=== PATIENT | female | born 1975 | race Hispanic/Latino ===

== ENCOUNTER 2016-05-02 11:32 | Emergency (ER) | payer OTHER ==
[~2016-05-02] VITALS: Ht 160 cm; Wt 98.0 kg
[~2016-05-02 11:32] MED LIST: ASPI-628 PO; GLIP5TAB21 PO; INSLIS SUBQ; INSU100V7 SUBQ; KETO30CA8 IJ; MEDR150V3 IM; METF10002 PO; METH750T3 PO; OXYC5CAP4 PO; PROM25TA14 PO; RIZA10TA26 PO; SENN8.6C6 PO
[2016-05-02 11:35] VITALS: BP 125/85; PULSE 63; RESP 20; O2SAT 98
[2016-05-02 12:45] LABS: BASOPHILS % (AUTO) 0.1 % (0-3); Mean Corpuscular Hemoglobin 29.3 pg (27.0-35.0); Mean Corpuscular Volume 92.2 fL (81-100); NEUTROPHILS % (AUTO) 66.1 % (40-74); Platelet Count 210 bil/L (150-400)
--- NOTE | 2016-05-02 12:50 | ED.REPORT ---
HPI-Neurologic Deficit Date of Service May 02, 2016 ED Provider: J Luis Louis MD 40 year old female with IDDM and history of possible remote TIA as well as gastric bypass surgery presents to the ER complaining of tingling sensation onset this morning around 08:00. Symptoms started in her left hand, and have since spread to her left leg, and left face primarily but her whole body has felt slightly tingly like pins and needles. Similar symptoms in the past related to abnormal potassium levels. Patient denies chest pain, facial droop, slurred speech, cognitive deficits, recent head trauma, fall, other neurological deficits, and history of CVA. Patient takes B12/folate supplements and multivitamins due to history of gastric bypass. Nursing Notes Stated Complaint: L SIDED FACIAL NUMBNESS Chief Complaint: Neuro Symptoms/ Deficits Nursing Notes Reviewed: Yes Allergies: Coded Allergies: Iodinated Contrast Media - Oral and (Unverified Allergy, Mild, Shortness of Breath, 02/12/16) PATIENT SHOWED SIGNS OF DIFFICULTY BREATHING POST CONTRAST INJECTION AND TIGHTNESS IN CHEST No Known Allergies (Verified Allergy, Unknown, 04/27/15) Scheduled Insulin Glargine (Lantus U100 Insulin Vial) 100 Unit/Ml Vial 24 UNIT SUBQ HS Insulin Human Lispro (HumaLOG U100 Insulin Vial) 100 Unit/Ml Unit 1 UNIT SUBQ TID Check blood sugars before meals and at bedtime. Use correction factor only before meals. Blood Sugar Lispro Correction: <151, 0 units; 151-175, 1 unit; 176-200, 2 units; 201-225, 3 units; 226-250, 4 units; 251-275, 5 units; 276-300 , 6 units; 301-325, 7 units; 326-350, 8 units; 351-375, 9 units; 376-400, 10 units; >400, 12 units. Medroxyprogesterone Acetate (Medroxyprogesterone Acetate) 150 Mg/1 Ml Vial 150 MG IM EVERY 3 MONTHS Scheduled PRN Ketorolac Tromethamine (Ketorolac Tromethamine) 30 Mg/1 Ml Cartridge 30 MG IJ weekly PRN PRN MIGRAINE Rizatriptan (Maxalt) 10 Mg Tablet 10 MG PO PRN PRN PRN For Headache General Time Seen by Provider: 12:47 Chief Complaint Numbness leg... (Left), Numbness hand... (Left) Hx Obtained From: Patient Arrived By: Walk-in Sudden in Onset?: No Onset Occurred: 5 - 8 hours ago Symptom Duration: Since onset Progression Since Onset: Unchanged Pertinent Negative: Pt denies other symptoms Related History: Reports: CVA/TIA, Diabetes mellitus Similar Sx Previous: Yes Risk Factors NIH Stroke Scale Level of Consciousness: Alert and responsive (0) Ask Month & Age: Both questions right (0) Horizontal EO Movements: None (0) Visual Alvarez: No visual loss (0) Right Arm Motor Drift (10s): No drift 10 sec (0) Left Arm Motor Drift (10s): No drift 10 sec (0) Right Leg Motor Drift (5s): No drift 5 sec (0) Left Leg Motor Drift (5s): No drift 5 sec (0) Limb Ataxia FNF/Heel-Granados: No ataxia (0) Sensation (Arms/Legs/Face): No sensory loss (0) Language Aphasia: No aphasia, normal (0) Dysarthria: No dysarthria, normal (0) Extinction/Inattention: No exctinct/inattent (0) NIHSS Score: 0 Time NIHSS Performed: 13:55 Date NIHSS Performed: May 02, 2016 Past Medical History Past Medical History Rectal bleeding Reports: Diabetes mellitus, GERD, Transient ischemic attack Reports: Depression Past Surgical History D&C Gastric bypass surgery 01/04/2016 Reports: Appendectomy Family History Cardiac problems Reports: Diabetes mellitus, Hypertension, Stroke Smoking History Never Smoker Social History Alcohol Use: "Social" Other Social History: Local resident Ambulatory Status Independent Review of Systems Constitutional: Denies: Chills, Fever Respiratory: Denies: Non-productive cough, Shortness of breath Cardiovascular: Denies: Chest pain Neurologic: Reports: Numbness, Denies: Change LOC, Confusion, Dizziness, Focal weakness, Headache, Lightheaded, Problem walking, Slurred speech, Syncope, Unable to speak, Vision change, Weakness Complete sys rev & neg: except as marked. Physical Exam Initial Vital Signs Vital Signs (First) Date Time Temp Pulse Resp B/P Pulse Ox O2 Delivery O2 Flow Rate FiO2 05/02/16 11:35 35.9 63 20 125/85 98 Room Air Initial VS: Reviewed Neck: Supple, Non-tender, Full range of motion Abdomen / GI: Soft, Non-tender, No guarding, No rebound, No distention Extremities: Vascular intact, Neuro intact, No swelling, No tenderness Psychiatric: Mood/affect normal, Behavior normal, Normal thought content General/Constitutional: Awake, Alert, Well developed, Well nourished Head / Eyes: Normocephalic, PERRL, EOMI, No nystagmus Respiratory / Chest: Breath sounds NL, Breath sounds = bilat, No respiratory distress, No rales, No rhonchi, No wheezing Cardiovascular: Heart rate NL, Regular rhythm, Heart sounds NL, Peripheral circulation NL Neurologic: Oriented X3, Speech NL, No motor deficits, No sensory deficits, CN II - XII intact, Reflexes equal bilat, Cerebellar NL Negative Romberg test. Interpretation & Diagnostics Lab Results Interpretation Result Diagram: 05/02/16 1231 05/02/16 1231 Test 05/02/16 11:58 05/02/16 12:31 Hold Avalos Top Tube Received (Received) White Blood Count 6.7th/mm3 (3.8-10.1) Red Blood Count 4.50mil/mm3 (3.90-5.20) Hemoglobin 13.2g/dL (12.0-15.6) Hematocrit 41.5% (35.0-46.0) Mean Corpuscular Volume 92.2fL (81-100) Mean Corpuscular Hemoglobin 29.3pg (27.0-35.0) Mean Corpuscular Hemoglobin Concent 31.8% (32.0-37.0) Red Cell Distribution Width 13.9% (12.3-15.4) Platelet Count 210bil/L (150-400) Neutrophils (%) (Auto) 66.1% (40-74) Lymphocytes (%) (Auto) 26.8% (14-46) Monocytes (%) (Auto) 6.0% (4-12) Eosinophils (%) (Auto) 1.0% (0-5) Basophils (%) (Auto) 0.1% (0-3) Sodium Level 143mEq/L (134-144) Potassium Level 4.2mEq/L (3.5-5.2) Chloride Level 106mEq/L (97-108) Carbon Dioxide Level 26mmol/L (18-29) Blood Urea Nitrogen 11mg/dL (6-20) Creatinine 0.57mg/dL (0.57-1.00) Estimat Glomerular Filtration Rate 169mL/min (>59) Glucose Level 136mg/dL (60-99) Calcium Level 9.0mg/dL (8.5-10.1) Total Bilirubin 0.4mg/dL (0.0-1.2) Aspartate Amino Transf (AST/SGOT) 16U/L (0-50) Alanine Aminotransferase (ALT/SGPT) 24U/L (0-32) Alkaline Phosphatase 68U/L (25-150) Total Protein 6.3g/dL (6.4-8.4) Albumin 4.0g/dL (3.4-5.0) Re-Eval/Medical Decision Med Decision/Clinical Course 40 year old female with IDDM and history of possible remote TIA as well as gastric bypass surgery presents to the ER complaining of tingling sensation onset this morning around 08:00. Symptoms started in her left hand, and have since spread to her left leg, and left face primarily but her whole body has felt slightly tingly like pins and needles. Similar symptoms in the past related to abnormal potassium levels. Patient denies chest pain, facial droop, slurred speech, cognitive deficits, recent head trauma, fall, other neurological deficits, and history of CVA. Patient takes B12/folate supplements and multivitamins due to history of gastric bypass. Here in the emergency department the patient is afebrile with stable vital signs and in no apparent distress. Neurologic examination is completely unremarkable except for reported subjective tingling sensation that she states has now almost completely resolved. She has no lateralizing motor deficits, slurred speech or facial droop. Gait is normal and Romberg testing is normal. Laboratory studies notable as below: CBC normal CMP normal There is no history of head trauma or intracranial hemorrhage. She has no headache. My suspicion for acute ischemic or hemorrhagic stroke is extremely low. No findings suggestive of intracranial mass lesion. Cause of subjective tingling sensation remains unclear. No evidence of megaloblastic anemia or significant electrolyte disturbance. Given that symptoms have completely resolved I see no indication for further workup at this time. Patient to continue multivitamin and B12 supplements to follow closely with her primary care physician. Follow-up and return precautions were reviewed in detail and she was discharged in good condition. Source of Hx: Old records Re-Evaluation/Progress : Time of Eval: 13:56 Re-Evaluation/Progress Note: Discussed lab results and plan to discharge. Patient is amenable to the plan. Return precautions given. All other questions addressed. Counseled Regarding: Diagnosis, Lab results, Need for follow-up, When/why to return to ED Discharge & Departure Impression: Primary Impression: Tingling Additional Impressions: Pins and needles sensation History of gastric bypass History of hypokalemia Disposition: Home Discharge Condition All VS Reviewed: Yes Condition: Stable Additional Instructions: Thank you for seeking care at emergency room. Our primary goal today in the ED was to evaluate you for any life-threatening conditions. Your evaluation was reassuring. Continue to take your B12 and multivitamin supplements. Stay hydrated. You should follow-up with your primary doctor this week. You should return to the ED immediately if you develop worsening or concerning signs or symptoms. Thank you for letting us partake in your care today. Referrals: Diane Mcgill MD (PCP) Moon Attestation Portions of this note were transcribed by Dewayne Rivera. I, Dr. Louis, personally performed the history, physical exam and medical decision-making; I reviewed and confirmed the accuracy of the information in the transcribed note. Signed by: Moon Pitt, 05/02/2016 and 14:04 copies to: Diane Mcgill MD, Beck O MD May 02, 2016 12:50 DEWAYNE RIVERA May 02, 2016 14:00
[2016-05-02 14:22] VITALS: BP 118/80; PULSE 66; RESP 18; O2SAT 98
== END 2016-05-02 14:23 | disposition home or self-care (01) ==
LOC: SED 11:32
DX: R20.2 Paresthesia of skin (principal); K21.9 Gastro-esophageal reflux disease without esophagitis; E11.9 Type 2 diabetes mellitus without complications; Z86.73 Personal history of transient ischemic attack (TIA), and cerebral infarction without residual deficits; Z86.39 Personal history of other endocrine, nutritional and metabolic disease; Z98.84 Bariatric surgery status; Z79.4 Long term (current) use of insulin; Z91.041 Radiographic dye allergy status

== ENCOUNTER 2016-08-01 15:23 | Emergency (ER) | payer OTHER ==
[~2016-08-01] VITALS: Ht 160 cm; Wt 81.8 kg
[~2016-08-01 15:23] MED LIST changes: -ASPI-628 PO; -GLIP5TAB21 PO; -METF10002 PO; -METH750T3 PO; -OXYC5CAP4 PO; -PROM25TA14 PO; -SENN8.6C6 PO
[2016-08-01 15:27] VITALS: BP 138/86; PULSE 69; RESP 20; O2SAT 100
[2016-08-01] MEDS ORDERED: Ondansetron 2 mg/mL 2 mL Inj ONE (15:34)
--- NOTE | 2016-08-01 15:39 | ED.REPORT ---
HPI-General Illness Date of Service August 01, 2016 ED Provider: Estrada Estrella DO A 41 year old female with a history of insulin dependent diabetes mellitus, GERD , previous TIA and gastric bypass (12/2015) presents to the ED with nausea and vomiting that began 3 days ago. Patient was seen at Urgent Care this afternoon with concern for hypoglycemia, however, BS at was 143. Symptoms also include heart palpitations, diaphoresis, dizziness, mild dysuria, increase in urinary frequency. She reports a decrease in fluid and food intake for the past 2 days. She ate chicken noodle soup this afternoon which exacerbated her symptoms. Patient reports similar symptoms during previous episodes of hypoglycemia. Patient has been evaluated in the ED 3 times for similar episodes and was treated with IV fluids which relieved her symptoms. She denies chest pain, diarrhea, hematemesis, fever, cough, chills or abdominal pain. Nursing Notes Stated Complaint: DIABETIC, DEHYDRATION, N/V/ SENT FROM [facility] Chief Complaint: Female Abdominal Pain Nursing Notes Reviewed: Yes Allergies: Coded Allergies: No Known Allergies (Verified Allergy, Unknown, 04/27/15) Scheduled Insulin Glargine (Lantus U100 Insulin Vial) 100 Unit/Ml Vial 24 UNIT SUBQ HS Insulin Human Lispro (HumaLOG U100 Insulin Vial) 100 Unit/Ml Unit 1 UNIT SUBQ TID Check blood sugars before meals and at bedtime. Use correction factor only before meals. Blood Sugar Lispro Correction: <151, 0 units; 151-175, 1 unit; 176-200, 2 units; 201-225, 3 units; 226-250, 4 units; 251-275, 5 units; 276-300 , 6 units; 301-325, 7 units; 326-350, 8 units; 351-375, 9 units; 376-400, 10 units; >400, 12 units. Medroxyprogesterone Acetate (Medroxyprogesterone Acetate) 150 Mg/1 Ml Vial 150 MG IM EVERY 3 MONTHS Scheduled PRN Ketorolac Tromethamine (Ketorolac Tromethamine) 30 Mg/1 Ml Cartridge 30 MG IJ weekly PRN PRN MIGRAINE Rizatriptan (Maxalt) 10 Mg Tablet 10 MG PO PRN PRN PRN For Headache General Time Seen by MD: 15:36 Chief Complaint Other (N/V) Hx Obtained From: Patient Arrived By: Walk-in Sudden in Onset?: No Onset Occurred: 1 - 4 hours ago Symptom Duration: Since onset Associated with: Reports: Diaphoresis, Dizziness, Nausea, Vomiting, Denies: Abdominal pain, Chest pain, Cough Pertinent Negative: Pt denies other symptoms Recent Healthcare: No recent hospitalization, Recent doctor visit Past Medical History Past Medical History Notes: Surgeon: Dr. Tutu Olmos MD Past Medical History Rectal bleeding Reports: Diabetes mellitus, GERD, Transient ischemic attack Reports: Depression Past Surgical History D&C Gastric bypass surgery 01/04/2016 Reports: Appendectomy Family History Cardiac problems Reports: Diabetes mellitus, Hypertension, Stroke Smoking History Never Smoker Social History Alcohol Use: "Social" Other Social History: Good social support, Local resident Ambulatory Status Independent Review of Systems Full Review of Systems Constitutional: Denies: Chills, Fever Cardiovascular: Reports: Palpitations, Denies: Chest pain GI: Reports: Nausea, Vomiting, Denies: Abdominal pain, Diarrhea Female: Reports: Dysuria, Urinary frequency Skin: Reports Diaphoresis Neurologic: Reports: Dizziness Complete sys rev & neg: except as marked. Physical Exam Vital Signs Vital Signs Date Time Temp Pulse Resp B/P Pulse Ox O2 Delivery O2 Flow Rate FiO2 08/01/16 21:28 78 16 98 Room Air 08/01/16 20:06 58 16 116/73 100 Room Air 08/01/16 15:27 35.4 69 20 138/86 100 Room Air Initial VS: Reviewed Neck: Supple, Non-tender, Full range of motion Extremities: Vascular intact, Neuro intact, No swelling, No tenderness Neurologic: Alert, Oriented, Nonfocal Psychiatric: Mood/affect normal, Behavior normal, Normal thought content General/Constitutional: Awake, Alert Appearance / Presentation: Positive: Obese Head / Eyes: Atraumatic, Normocephalic, PERRL Respiratory / Chest: Atraumatic, Breath sounds NL, Breath sounds = bilat, No respiratory distress Cardiovascular: Heart rate NL, Regular rhythm, Heart sounds NL Abdomen: Atraumatic, Soft, Non-tender Skin: Atraumatic, Color NL, Warm Interpretation & Diagnostics Lab Results Interpretation Result Diagram: 08/01/16 1540 08/01/16 1540 Test 08/01/16 15:40 08/01/16 20:10 White Blood Count 7.2th/mm3 (3.8-10.1) Red Blood Count 4.45mil/mm3 (3.90-5.20) Hemoglobin 13.2g/dL (12.0-15.6) Hematocrit 40.0% (35.0-46.0) Mean Corpuscular Volume 89.9fL (81-100) Mean Corpuscular Hemoglobin 29.7pg (27.0-35.0) Mean Corpuscular Hemoglobin Concent 33.0% (32.0-37.0) Red Cell Distribution Width 13.2% (12.3-15.4) Platelet Count 204bil/L (150-400) Neutrophils (%) (Auto) 63.1% (40-74) Lymphocytes (%) (Auto) 28.3% (14-46) Monocytes (%) (Auto) 6.1% (4-12) Eosinophils (%) (Auto) 2.1% (0-5) Basophils (%) (Auto) 0.3% (0-3) Sodium Level 137mEq/L (134-144) Potassium Level 3.8mEq/L (3.5-5.2) Chloride Level 99mEq/L (97-108) Carbon Dioxide Level 22mmol/L (18-29) Blood Urea Nitrogen 16mg/dL (6-24) Creatinine 0.85mg/dL (0.57-1.00) Estimat Glomerular Filtration Rate 106mL/min (>59) Glucose Level 173mg/dL (60-99) Calcium Level 9.4mg/dL (8.5-10.1) Magnesium Level 2.2mg/dL (1.6-2.6) Total Bilirubin 0.5mg/dL (0.0-1.2) Aspartate Amino Transf (AST/SGOT) 19U/L (0-50) Alanine Aminotransferase (ALT/SGPT) 19U/L (0-32) Alkaline Phosphatase 69U/L (25-150) Total Protein 7.1g/dL (6.4-8.4) Albumin 3.9g/dL (3.4-5.0) Lipase 13U/L (13-60) Hold Urine Received (Received) Point of Care Testing: Preg test neg - urine General Lab Results Interp 2: Urinalysis NL except (positive ketones) ECG Interpretation ECG Interpretation: Normal Sinus Rhythm Rate 57 Time: 18:57 Interpreted by: ED physician Normal ECG Interpretation: No change from prior ECGs (02/12/16) CT Abd / Pelvis Interpretation IMPRESSION: 1. No acute process. No explanation for emesis. 2. Appendix not seen. No evidence of appendicitis. Dictated by: Floyd Foote M.D. on 08/01/2016 at 20:52 Study type: Abdominal CT IV contrast, Abdom CT oral contrast Interpretation / Wet Read by: Interpret - Radiologist Re-Eval/Medical Decision Med Decision/Clinical Course Vomiting after gastric bypass surgery, labs and CAT scan are unremarkable, the case was discussed with her surgeon who stated within normal Skin the patient could go home on a full liquid diet. The patient is agreeable to this. She is feeling better and will be discharged. Return and follow-up precautions given. Time of Eval: 16:29 Patient Status: Condition unchanged Re-Evaluation/Progress Note: Patient's symptoms are still present. Time of Eval: 16:59 Patient Status: Condition improved Re-Evaluation/Progress Note: Symptoms are still present but are improved. Promethazine is started. Time of Eval: 17:12 Patient Status: Condition improved Re-Evaluation/Progress Note: Patient is resting comfortably and her symptoms have improved. She is informed of the consultation with Dr. Olmos. All questions are addressed. Time of Eval: 21:02 Patient Status: Condition improved Re-Evaluation/Progress Note: She is informed of her CT results and diagnosis. Consultation : Consulted With: Surgeon Call Returned at: 17:03 Door To Door Salesperson: Agrees with eval, Agrees with plan Note: Dr. Olmos Reports pt likely has dumping syndrome Recommends drink oral contrast and wait approx. 1 hour Follow up (if CT normal): Recommends clear liquid diet for 5 days Counseled Regarding: Diagnosis, Lab results, Need for follow-up, When/why to return to ED Discharge & Departure Primary Impression: Nausea & vomiting Vomiting type: unspecified Vomiting Intractability: non-intractable Qualified Code: R11.2 - Nausea with vomiting, unspecified Disposition: Home Discharge Condition All VS Reviewed: Yes Condition: Improved Patient Instructions: Acute Nausea and Vomiting (ED) Additional Instructions: Your emergency department evaluation today including lab work, EKG and CT are reassuring that there is no immediate cause for concern at this time. Dr. Apodaca's recommends that you eat a full clear liquid diet for the next 5 days, just as you did following your surgery. Please continue to take your medications as directed. Call your surgeon tomorrow to schedule a recheck. Please return to the emergency department if you begin to experience any new or worsening symptoms including any fever, chills, weakness, lightheadedness, abdominal pain, shortness of breath or chest pain. Referrals: Diane Mcgill MD (PCP) Scribe Attestation Portions of this note were transcribed by Nancy Flower. I, Dr. Estrella personally performed the history, physical exam and medical decision-making; I reviewed and confirmed the accuracy of the information in the transcribed note. Signed by: Moon Baltazar, 08/01/16 2108. copies to: Diane Mcgill MD, Timothy S DO August 01, 2016 15:39 NANCY FLOWER August 01, 2016 15:47
[2016-08-01] MEDS ORDERED: 0.9% Sodium Chloride 1,000 ML IV ONE ×3 (15:49→16:30)
[2016-08-01] MEDS ORDERED: Ondansetron 2 mg/mL 2 mL Inj IVPUSH PRN (15:50)
[2016-08-01 15:56] LABS: BASOPHILS % (AUTO) 0.3 % (0-3); EOSINOPHILS % (AUTO) 2.1 % (0-5); MONOCYTES % (AUTO) 6.1 % (4-12); Mean Corpuscular Hemoglobin 29.7 pg (27.0-35.0); Mean Corpuscular Volume 89.9 fL (81-100); NEUTROPHILS % (AUTO) 63.1 % (40-74); Platelet Count 204 bil/L (150-400)
[2016-08-01 16:13] LABS: Magnesium 2.2 mg/dL (1.6-2.6)
[2016-08-01] MEDS ORDERED: Promethazine Inj 25 MG in 0.9% Sodium Chloride-Pha MIX 100 ML IV ONE (16:30)
[2016-08-01] MEDS ORDERED: Iohexol 300 mg/mL 30 mL Inj PO ONE (17:10)
[2016-08-01 20:06] VITALS: BP 116/73; PULSE 58; RESP 16; O2SAT 100
--- NOTE | 2016-08-01 20:55 | DRSVH ---
PROCEDURE: CT ABDOMEN AND PELVIS WITH CONTRAST ([id number]) INDICATIONS: persistent vomiting, recent gastric bypass TECHNIQUE: After the administration of oral and intravenous contrast, 5 mm thick sections acquired from the diap hragms to the symphysis. 5 mm thick coronal and sagittal reformats were performed. For radiation do se reduction, the following was used: automated exposure control, adjustment of mA and/or kV accordi ng to patient size. COMPARISON: [facility], CT, CT ABD PELVIS W CON, 02/12/2016, 17:08. FINDINGS: Image quality: Excellent. ABDOMEN: Lung bases: Lung bases are clear. Heart size is normal. Solid organs: Liver and spleen are normal in size and enhancement. Gallbladder is within normal florez its. Biliary system is non-dilated. Pancreas enhances normally. No adrenal nodules. Kidneys are n ormal in size and enhancement, without hydronephrosis. Peritoneum and bowel: Gastric bypass has been performed. Stomach, small bowel, and colon loops are no rmal in caliber and wall thickness. No free fluid or air. Appendix not seen. No evidence of appendi citis. Nodes and vessels: No retroperitoneal or mesenteric adenopathy. Aorta and inferior vena cava are no rmal in caliber. Miscellaneous: No ventral hernias. PELVIS: Genitourinary: Bladder wall thickness is normal. Miscellaneous: No inguinal hernias or adenopathy. Bones: No suspicious bony lesions. No vertebral body compression fractures. IMPRESSION: 1. No acute process. No explanation for emesis. 2. Appendix not seen. No evidence of appendicitis. Dictated by: Floyd Foote M.D. on 08/01/2016 at 20:52 Approved by: Floyd Foote M.D. on 08/01/2016 at 20:54
[2016-08-01 21:28] VITALS: PULSE 78; RESP 16; O2SAT 98
== END 2016-08-01 21:28 | disposition home or self-care (01) ==
LOC: SED 15:23
DX: R11.2 Nausea with vomiting, unspecified (principal); R00.2 Palpitations; R61 Generalized hyperhidrosis; R42 Dizziness and giddiness; R30.0 Dysuria; E11.9 Type 2 diabetes mellitus without complications; K21.9 Gastro-esophageal reflux disease without esophagitis; F32.9 Major depressive disorder, single episode, unspecified; Z79.4 Long term (current) use of insulin; Z86.73 Personal history of transient ischemic attack (TIA), and cerebral infarction without residual deficits; Z98.890 Other specified postprocedural states
CPT/HCPCS: 36415; 74177; 80053; 81025; 83690; 83735; 85025; 93005; 96361; 96374; 96375; 99285; J2405; J2550; J7030; Q9967